=== PATIENT | female | born 1995 ===

== ENCOUNTER 2020-07-20 09:43 | Inpatient (IN) ==
[2020-07-20] MEDS: LACTATED RINGERS 1,000 ML IV SCH ×2 (10:10→14:07)
[2020-07-20] MEDS ORDERED: FAMOTIDINE 20 MG/2 ML VIAL IV ONE (10:15)
[2020-07-20] MEDS ORDERED: CITRIC ACID/SODIUM CITRATE 30 ML UDCUP PO ONE (10:15)
[2020-07-20] MEDS ORDERED: ceFAZolin 2,000 MG in PREMIX 1 EACH IV ONE (10:15)
[2020-07-20] MEDS ORDERED: OXYTOCIN/LR 30 UNIT/1,000 ML BAG IV ONE (10:17)
[2020-07-20] MEDS ORDERED: OXYTOCIN/LR 20 UNIT/1,000 ML BAG IV ONE ×2 (10:17→16:35)
[2020-07-20] MEDS ORDERED: OXYTOCIN 10 UNIT/ML VIAL IM ONE (10:17)
[2020-07-20 10:28] LABS: Basophils % 0.2 % (0.0-0.8); Eosinophils # 0.1 10*3/uL (0.0-0.87); Eosinophils % 1.1 % (0.00-10.9); Hematocrit 37.4 VOL% (35.7-47.0); Hemoglobin 12.1 GM/DL (12.0-16.0); Immature Granulocytes % 0.3 %; Immature Granulocytes Absolute 0.03 #; Lymphocytes # 1.3 10*3/uL (1.4-4.0); Lymphocytes % 14.7 % (21.3-54.2); Mean Corpuscular HGB Conc 32.4 GM/DL (32-36); Mean Corpuscular Volume 86.8 FL (87-102); Monocytes % 6.3 % (1.7-12.7); Neutrophils % 77.4 % (38.7-73.9); Platelet Count 316 T/CUMM (130-400); Red Blood Count 4.31 MC/CUMM (3.8-5.5); Red Cell Distribution Width 15.5 % (9.3-17.3); White Blood Count 8.9 T/CUMM (4-12)
[2020-07-20 10:49] LABS: Albumin 2.4 G/DL (3.4-5.0); Bilirubin,Total 0.9 MG/DL (0.2-1.0); Osmolality,Calculated 275.3 MOS/KG (273-304); Potassium 3.2 MMOL/L (3.5-5.1); Total Protein 6.7 G/DL (6.4-8.2)
[2020-07-20] MEDS ORDERED: METHYLERGONOVINE 0.2 MG/1 ML AMP ONE (13:46)
[2020-07-20] MEDS ORDERED: miSOPROStoL 200 MCG TABLET ONE (13:46)
[2020-07-20] MEDS ORDERED: CARBOPROST TROMETHAMINE 250 MCG/ML AMP IM ONE (13:46)
[2020-07-20] MEDS ORDERED: ONDANSETRON 4 MG/2 ML VIAL ONE (13:51)
[2020-07-20] MEDS ORDERED: PHENYLEPHRINE 1 MG/10 ML SYRINGE IV ONE (13:51)
[2020-07-20 15:13] LABS: Cord Arterial Blood HCO3 22.5 MMOL/L
[2020-07-20 15:14] LABS: Cord Venous Blood HCO3 23.1 MMOL/L; Cord Venous Blood PCO2 40.4 MMHG; Cord Venous Blood PO2 41.6 MMHG
[2020-07-20 15:36] LABS: Bilirubin,Urine Negative (Negative); Blood, Urine Negative (Negative); Glucose,Urine (UA) Negative (Negative); Ketones,Urine 20 mg/dL (Negative); Mucus,Urine Occasional /LPF (Occasional); Nitrite,Urine Negative (Negative); Protein,Urine Negative; RBC,Urine <1 /HPF (0-4); Squamous Epithelial Cell,Urine Occasional /HPF (0-10); Urine Appearance CLEAR (Clear); Urine Color Yellow (Yellow); Urine Specific Gravity 1.012 (1.001-1.035); Urine Urobilinogen < 2.0 EU/DL (0.2-1.0); WBC,Urine 2 /HPF (0-6)
[2020-07-20] MEDS ORDERED: KETOROLAC 30 MG/1 ML VIAL IV SCH (16:30)
[2020-07-20] MEDS ORDERED: ACETAMINOPHEN 500 MG TABLET PO SCH (16:30)
[2020-07-20] MEDS ORDERED: RHO(D) IMMUNE GLOBULIN 300 MCG SYRINGE IM ONE ×2 (16:35→17:30)
[2020-07-20] MEDS ORDERED: ONDANSETRON 4 MG/2 ML VIAL IV PRN (16:35)
[2020-07-20] MEDS ORDERED: IBUPROFEN 800 MG TABLET PO PRN (16:35)
[2020-07-20] MEDS ORDERED: ACETAMINOPHEN 325 MG TABLET PO PRN (16:35)
[2020-07-20] MEDS ORDERED: SIMETHICONE CHEW 80 MG TABLET PO PRN (16:35)
[2020-07-20] MEDS ORDERED: LACTATED RINGERS 1,000 ML IV SCH (17:00)
[2020-07-20] MEDS: POTASSIUM CHLORIDE 20 MEQ TABLET PO PRN ×3 (18:19→22:48)
[2020-07-20] MEDS: DOCUSATE SODIUM 100 MG CAPSULE PO SCH (20:36)
[2020-07-20] MEDS: ACETAMINOPHEN 500 MG TABLET PO SCH (22:48)
[2020-07-20] MEDS: KETOROLAC 30 MG/1 ML VIAL IV SCH (22:49)
[2020-07-21] MEDS: POTASSIUM CHLORIDE 20 MEQ TABLET PO PRN (01:09)
[2020-07-21] MEDS: KETOROLAC 30 MG/1 ML VIAL IV SCH ×2 (05:11→11:05)
[2020-07-21] MEDS: ACETAMINOPHEN 500 MG TABLET PO SCH ×2 (05:11→11:05)
[2020-07-21 06:47] LABS: Basophils % 0.4 % (0.0-0.8); Eosinophils # 0.1 10*3/uL (0.0-0.87); Eosinophils % 1.5 % (0.00-10.9); Hematocrit 30.5 VOL% (35.7-47.0); Hemoglobin 9.8 GM/DL (12.0-16.0); Immature Granulocytes % 0.4 %; Immature Granulocytes Absolute 0.03 #; Lymphocytes # 2.1 10*3/uL (1.4-4.0); Lymphocytes % 25.3 % (21.3-54.2); Mean Corpuscular HGB Conc 32.1 GM/DL (32-36); Mean Corpuscular Volume 88.2 FL (87-102); Mean Platelet Volume 9.1 FL (9.6-12.0); Monocytes % 7.5 % (1.7-12.7); Neutrophils % 64.9 % (38.7-73.9); Platelet Count 244 T/CUMM (130-400); Red Blood Count 3.46 MC/CUMM (3.8-5.5); Red Cell Distribution Width 15.6 % (9.3-17.3); White Blood Count 8.4 T/CUMM (4-12)
[2020-07-21] MEDS: METOCLOPRAMIDE 10 MG TABLET PO SCH ×2 (08:15→18:57)
[2020-07-21] MEDS: FERROUS SULFATE 325 MG TABLET PO SCH (08:16)
[2020-07-21] MEDS: DOCUSATE SODIUM 100 MG CAPSULE PO SCH ×2 (08:16→20:10)
[2020-07-21] MEDS: MULTIVITAMIN (PRENATAL) TABLET PO SCH (08:16)
[2020-07-21] MEDS: MAGNESIUM HYDROXIDE SUSP 30 ML UDCUP PO PRN (20:21)
[2020-07-22] MEDS: METOCLOPRAMIDE 10 MG TABLET PO SCH ×2 (00:37→08:31)
[2020-07-22 07:30] VITALS: BP 131/83
[2020-07-22] MEDS: MULTIVITAMIN (PRENATAL) TABLET PO SCH (08:43)
[2020-07-22] MEDS: DOCUSATE SODIUM 100 MG CAPSULE PO SCH (08:43)
[2020-07-22] MEDS: FERROUS SULFATE 325 MG TABLET PO SCH (08:43)
[2020-07-22] MEDS: MAGNESIUM HYDROXIDE SUSP 30 ML UDCUP PO PRN (08:43)
[2020-07-22] MEDS ORDERED: DIPH/TET/ACEL PERT BOOSTER VACCINE 0.5 ML VIAL IM ONE (11:47)
== END 2020-07-22 13:45 | disposition home or self-care (01) | DRG 540 ==
LOC: N.LD 09:43 → N.OB 17:56
PROVIDERS: ADMIT Obstetrics & Gynecology; ATTEND Obstetrics & Gynecology
PROC: LDCSECT (ICD-10-PCS; 2020-07-20 15:00)